=== PATIENT | female | born 1945 | race African-American/Black ===

== ENCOUNTER 2020-04-11 09:37 | Inpatient (IN) | payer MEDICARE, MEDICAID ==
[~2020-04-11] VITALS: Ht 170.2 cm; Wt 69.9 kg
[2020-04-11 10:48] LABS: HEMATOCRIT. 33.7 % (36.0-48.0); HEMOGLOBIN. 11.4 g/dL (12.0-16.0); MEAN CORPUSCULAR HEMOGLOBIN 39.2 pg (28.0-32.0); MEAN CORPUSCULAR VOLUME 115.6 fL (81.0-99.0); MEAN PLATELET VOLUME 9.2 fl (7.4-10.4); PLATELET 100 x1000/uL (130-400); RED BLOOD CELL COUNT 2.92 mill/uL (4.2-5.4); RED CELL DISTRIBUTION WIDTH 19.5 % (11.6-14.6)
[2020-04-11 10:51] LABS: CHLORIDE 105 mEq/L (98-107)
[2020-04-11 10:53] LABS: INR 1.1; PROTHROMBIN TIME 11.4 sec (9.6-11.0)
[2020-04-11 11:25] LABS: PLATELET ESTIMATE DECREASED
[2020-04-11] MEDS ORDERED: VANCOMYCIN 1 G PREMIX 200 ML IV SCH (11:30)
[2020-04-11] MEDS ORDERED: PIPERACILLIN/TAZOBACTAM 3.375GM/50ML PREMIX IV ONE (11:30)
[2020-04-11] MEDS ORDERED: PIPERACILLIN/TAZ 3.375G PREMIX 50 ML IV SCH (12:00)
[2020-04-11] MEDS ORDERED: ZOLPIDEM TARTRATE 5MG TABLET PO PRN (15:15)
[2020-04-11] MEDS ORDERED: ACETAMINOPHEN 325MG TABLET PO PRN ×2 (15:15)
[2020-04-11] MEDS ORDERED: NA PHOS,M-B/NA PHOS,DI-BA ENEMA 118ML PR PRN (15:15)
[2020-04-11] MEDS ORDERED: DOCUSATE SODIUM 100MG CAPSULE PO PRN (15:15)
[2020-04-11] MEDS ORDERED: MAGNESIUM/ALUMINUM HYDROXIDE/SIMETHICONE 30ML UDC PO PRN (15:15)
[2020-04-11] MEDS ORDERED: CLONIDINE 0.1MG TABLET PO PRN (15:15)
[2020-04-11] MEDS ORDERED: ONDANSETRON HCL 4MG/2ML INJ IV PRN (15:15)
[2020-04-11] MEDS ORDERED: MORPHINE SULFATE 2 MG/ML CPJ (NOT FOR IM USE) IV PRN (15:15)
[2020-04-11] MEDS ORDERED: TRAMADOL 50MG TABLET PO PRN (15:15)
[2020-04-11] MEDS ORDERED: GUAIFENESIN 200MG/10ML SUGAR FREE UDC PO PRN (15:15)
[2020-04-11] MEDS ORDERED: NITROGLYCERIN 0.4MG TABLET SL SL PRN (15:15)
[2020-04-11] MEDS ORDERED: IPRATROPIUM/ALBUTEROL 0.5-3(2.5)MG/3ML NEB NEB PRN (15:15)
[2020-04-11] MEDS ORDERED: DEXTROSE 50% WATER 50ML SYRINGE IV PRN (15:30)
[2020-04-11 16:05] VITALS: BP 162/90
[2020-04-11 16:10] VITALS: BP 162/90
[2020-04-11] MEDS: ENOXAPARIN 40MG/0.4ML SYR SUBCUT SCH (16:30)
[2020-04-11 17:13] LABS: FOLIC ACID (FOLATE) SERUM 6.9 ng/mL (>5.38)
[2020-04-11] MEDS ORDERED: *PATIENT'S OWN MEDICATION STORAGE XX SCH (17:15)
[2020-04-11 17:20] VITALS: BP 162/90
[2020-04-11] MEDS: BLOOD SUGAR DIAGNOSTIC STRIP TEST SCH ×2 (17:30→21:03)
[2020-04-11] MEDS: INSULIN LISPRO 100 UNITS/ML SUBCUT SCH ×2 (17:30→21:00)
[2020-04-11] MEDS: PIPERACILLIN/TAZOBACTAM 3.375 G in DEXT 5% WATER 100 ML IV SCH ×2 (18:18→23:57)
[2020-04-11] MEDS ORDERED: HYDR4TAB4 MT (18:35)
[2020-04-11] MEDS: HYDROMORPHONE HCL/PF 2MG/ML CPJ IV PRN (19:32)
[2020-04-11] MEDS ORDERED: APIX5TAB PO (19:53)
[2020-04-11] MEDS ORDERED: BRIM.2 (19:53)
[2020-04-11] MEDS ORDERED: PALB125C PO (19:53)
[2020-04-11] MEDS ORDERED: DIGO125T2 PO (19:53)
[2020-04-11] MEDS ORDERED: BUME2TAB7 PO (19:53)
[2020-04-11] MEDS ORDERED: POTA-79 PO (19:53)
[2020-04-11] MEDS ORDERED: EMPA25TA PO (19:53)
[2020-04-11] MEDS ORDERED: SILD20TA PO (19:53)
[2020-04-11] MEDS ORDERED: METO25TA6 PO (19:53)
[2020-04-11] MEDS ORDERED: NETA2.5D (20:00)
[2020-04-11] MEDS ORDERED: PANT40TA4 PO (20:00)
[2020-04-11] MEDS ORDERED: LETR2.5T7 PO (20:00)
[2020-04-11 20:14] VITALS: BP 98/64
[2020-04-11] MEDS: FAMOTIDINE 20MG TABLET PO SCH (21:00)
[2020-04-11] MEDS: ASCORBIC ACID 500 MG TABLET PO SCH (21:00)
[2020-04-11 23:42] LABS: CREATINE KINASE 38 IU/L (26-192); CREATINE KINASE MB FRACTION < 1.0 ng/mL (0.5-3.6)
[2020-04-12 00:33] VITALS: BP 109/60
[2020-04-12 04:00] VITALS: BP 93/59
[2020-04-12] MEDS: PIPERACILLIN/TAZOBACTAM 3.375 G in DEXT 5% WATER 100 ML IV SCH ×3 (05:07→21:08)
[2020-04-12] MEDS: VANCOMYCIN 1 G PREMIX 200 ML IV SCH (06:33)
[2020-04-12] MEDS: BLOOD SUGAR DIAGNOSTIC STRIP TEST SCH ×4 (06:37→21:00)
[2020-04-12 07:10] LABS: CLARITY URINE CLEAR (CLEAR); COLOR URINE DARK YELLOW (YELLOW); KETONES URINE TRACE (NEGATIVE); LEUKOCYTE ESTERASE URINE 1+ (NEGATIVE); NITRITE URINE NEGATIVE (NEGATIVE); OCCULT BLOOD URINE NEGATIVE (NEGATIVE); PROTEIN URINE TRACE (NEGATIVE); SPECIFIC GRAVITY URINE 1.042 (1.005-1.030)
[2020-04-12 07:14] LABS: CREATINE KINASE 37 IU/L (26-192); CREATINE KINASE MB FRACTION < 1.0 ng/mL (0.5-3.6)
[2020-04-12] MEDS: INSULIN LISPRO 100 UNITS/ML SUBCUT SCH ×4 (07:50→21:00)
[2020-04-12 07:56] LABS: *AMPHETAMINES SCREEN URINE NEGATIVE (NEGATIVE); *BARBITURATES SCREEN URINE NEGATIVE (NEGATIVE); *BENZODIAZEPINES SCREEN URINE NEGATIVE (NEGATIVE); *COCAINE SCREEN URINE NEGATIVE (NEGATIVE); CANNABINOID URINE SCREEN NEGATIVE (NEGATIVE); METHADONE URINE SCREEN NEGATIVE (NEGATIVE); PHENCYCLIDINE URINE SCREEN NEGATIVE (NEGATIVE)
[2020-04-12 07:57] LABS: OPIATES URINE SCREEN PRESUMTIVE POSITIVE (NEGATIVE)
[2020-04-12 08:00] VITALS: BP 136/71
[2020-04-12] MEDS: HYDROMORPHONE HCL/PF 2MG/ML CPJ IV PRN ×3 (08:20→22:51)
[2020-04-12] MEDS: ZINC SULFATE 220 MG ( 50 ) CAPSULE PO SCH (09:00)
[2020-04-12] MEDS: ASCORBIC ACID 500 MG TABLET PO SCH (09:00)
[2020-04-12] MEDS: FAMOTIDINE 20MG TABLET PO SCH (09:00)
[2020-04-12 12:00] VITALS: BP 134/70
[2020-04-12] MEDS ORDERED: BIMA2.5D5 EACHEYE (13:21)
[2020-04-12] MEDS ORDERED: CHOL500063 MT (13:27)
[2020-04-12] MEDS ORDERED: DIGOXIN 125MCG TABLET PO SCH (13:30)
[2020-04-12] MEDS ORDERED: NON FORMULARY PATIENT HOME MED XX SCH (14:30)
[2020-04-12 16:00] VITALS: BP 140/78
[2020-04-12] MEDS: ENOXAPARIN 40MG/0.4ML SYR SUBCUT SCH (16:30)
[2020-04-12] MEDS ORDERED: IBRANCE 125 MG PO SCH (18:00)
[2020-04-12] MEDS: BRIMONIDINE 0.2% OPHTH DROPS 5ML BOTHEYE SCH (18:00)
[2020-04-12] MEDS: DIGOXIN 125MCG TABLET PO SCH (18:29)
[2020-04-12 20:00] VITALS: BP 115/75
[2020-04-12] MEDS: SILDENAFIL CITRATE 20MG TABLET PO SCH (22:43)
[2020-04-12] MEDS: LUMIGAN 0.01% OP SCH (22:59)
[2020-04-12] MEDS: RHOPRESSA 0.02% OP SCH (22:59)
[2020-04-13] VITALS: BP 110/50
[2020-04-13] MEDS: VANCOMYCIN 1 G PREMIX 200 ML IV SCH (00:33)
[2020-04-13] MEDS: PIPERACILLIN/TAZOBACTAM 3.375 G in DEXT 5% WATER 100 ML IV SCH ×4 (03:25→19:53)
[2020-04-13 04:00] VITALS: BP 115/56
[2020-04-13] MEDS: HYDROMORPHONE HCL/PF 2MG/ML CPJ IV PRN ×3 (06:05→21:19)
[2020-04-13] MEDS: BLOOD SUGAR DIAGNOSTIC STRIP TEST SCH ×4 (06:23→21:10)
[2020-04-13] MEDS: PANTOPRAZOLE 40MG DR TABLET PO SCH (06:23)
[2020-04-13] MEDS: INSULIN LISPRO 100 UNITS/ML SUBCUT SCH ×4 (06:23→21:00)
[2020-04-13] MEDS: SILDENAFIL CITRATE 20MG TABLET PO SCH ×3 (06:23→21:18)
[2020-04-13 08:00] VITALS: BP 109/70
[2020-04-13] MEDS: ZINC SULFATE 220 MG ( 50 ) CAPSULE PO SCH (09:00)
[2020-04-13] MEDS: BRIMONIDINE 0.2% OPHTH DROPS 5ML BOTHEYE SCH ×2 (09:47→16:45)
[2020-04-13] MEDS: CHOLECALCIFEROL (D3) 1000 UNIT TABLET PO SCH (09:47)
[2020-04-13 12:00] VITALS: BP 117/69
[2020-04-13 16:00] VITALS: BP 123/73
[2020-04-13] MEDS: ENOXAPARIN 40MG/0.4ML SYR SUBCUT SCH (16:45)
[2020-04-13] MEDS: RHOPRESSA 0.02% OP SCH (16:45)
[2020-04-13] MEDS: LUMIGAN 0.01% OP SCH (16:45)
[2020-04-13] MEDS: DIGOXIN 125MCG TABLET PO SCH (17:23)
[2020-04-13] MEDS: VANCOMYCIN 750 MG PREMIX 150 ML IV SCH (17:24)
[2020-04-13 20:00] VITALS: BP 100/59
[2020-04-14] VITALS: BP 111/59
[2020-04-14] MEDS: PIPERACILLIN/TAZOBACTAM 3.375 G in DEXT 5% WATER 100 ML IV SCH ×4 (03:29→20:35)
[2020-04-14 04:00] VITALS: BP 101/65
[2020-04-14] MEDS: HYDROMORPHONE HCL/PF 2MG/ML CPJ IV PRN ×2 (04:54→13:32)
[2020-04-14] MEDS: SILDENAFIL CITRATE 20MG TABLET PO SCH ×3 (05:56→22:00)
[2020-04-14] MEDS: PANTOPRAZOLE 40MG DR TABLET PO SCH (06:27)
[2020-04-14] MEDS: INSULIN LISPRO 100 UNITS/ML SUBCUT SCH ×4 (06:48→20:11)
[2020-04-14] MEDS: BLOOD SUGAR DIAGNOSTIC STRIP TEST SCH ×4 (06:48→20:11)
[2020-04-14 08:23] VITALS: BP 121/81
[2020-04-14] MEDS: CHOLECALCIFEROL (D3) 1000 UNIT TABLET PO SCH (08:39)
[2020-04-14] MEDS: ZINC SULFATE 220 MG ( 50 ) CAPSULE PO SCH (08:40)
[2020-04-14] MEDS: BRIMONIDINE 0.2% OPHTH DROPS 5ML BOTHEYE SCH ×2 (08:43→17:27)
[2020-04-14 11:40] VITALS: BP 109/76
[2020-04-14] MEDS: VANCOMYCIN 750 MG PREMIX 150 ML IV SCH (13:04)
[2020-04-14 16:06] VITALS: BP 123/64
[2020-04-14] MEDS: ENOXAPARIN 40MG/0.4ML SYR SUBCUT SCH (17:24)
[2020-04-14] MEDS: LUMIGAN 0.01% OP SCH (17:33)
[2020-04-14] MEDS: RHOPRESSA 0.02% OP SCH (17:37)
[2020-04-14] MEDS: DIGOXIN 125MCG TABLET PO SCH (17:47)
[2020-04-14 20:38] VITALS: BP 132/66
[2020-04-15] VITALS: BP 115/56
[2020-04-15] MEDS: PIPERACILLIN/TAZOBACTAM 3.375 G in DEXT 5% WATER 100 ML IV SCH ×2 (02:06→08:05)
[2020-04-15 04:00] VITALS: BP 119/73
[2020-04-15 06:18] LABS: CHLORIDE 109 mEq/L (98-107)
[2020-04-15] MEDS: PANTOPRAZOLE 40MG DR TABLET PO SCH (06:31)
[2020-04-15] MEDS: SILDENAFIL CITRATE 20MG TABLET PO SCH (06:31)
[2020-04-15] MEDS: VANCOMYCIN 750 MG PREMIX 150 ML IV SCH (06:31)
[2020-04-15] MEDS: BLOOD SUGAR DIAGNOSTIC STRIP TEST SCH (06:31)
[2020-04-15] MEDS: INSULIN LISPRO 100 UNITS/ML SUBCUT SCH (06:47)
[2020-04-15] MEDS: BRIMONIDINE 0.2% OPHTH DROPS 5ML BOTHEYE SCH (08:06)
[2020-04-15] MEDS: ZINC SULFATE 220 MG ( 50 ) CAPSULE PO SCH ×2 (08:07→08:17)
[2020-04-15] MEDS: CHOLECALCIFEROL (D3) 1000 UNIT TABLET PO SCH (08:07)
[2020-04-15 08:21] VITALS: BP 131/80
[2020-04-15 09:26] VITALS: BP 132/80
== END 2020-04-15 11:10 | disposition home or self-care (01) | DRG 871 ==
LOC: ER 09:37 → 6WST 13:45 → EDBEDREQTM 13:47 → EDBEDREQ 13:47 → ENRESERV 15:00 → SUPCPDRO 15:14
PROVIDERS: ADMIT Internal Medicine; ATTEND Internal Medicine
DX: A41.9 Sepsis, unspecified organism (principal); G92 Toxic encephalopathy; D61.818 Other pancytopenia; E44.1 Mild protein-calorie malnutrition; C79.51 Secondary malignant neoplasm of bone; L03.311 Cellulitis of abdominal wall; E83.52 Hypercalcemia; J44.9 Chronic obstructive pulmonary disease, unspecified; I48.91 Unspecified atrial fibrillation; C50.919 Malignant neoplasm of unspecified site of unspecified female breast; I10 Essential (primary) hypertension; K57.90 Diverticulosis of intestine, part unspecified, without perforation or abscess without bleeding; E11.9 Type 2 diabetes mellitus without complications; Z79.4 Long term (current) use of insulin; D63.8 Anemia in other chronic diseases classified elsewhere; Z85.3 Personal history of malignant neoplasm of breast; Z68.24 Body mass index [BMI] 24.0-24.9, adult; Z79.899 Other long term (current) drug therapy; Z88.8 Allergy status to other drugs, medicaments and biological substances; Z88.2 Allergy status to sulfonamides; Z88.6 Allergy status to analgesic agent; S31.109A Unspecified open wound of abdominal wall, unspecified quadrant without penetration into peritoneal cavity, initial encounter
CPT/HCPCS: 36415; 74176; 80048; 80053; 80061; 80162; 80202; 80305; 81003; 82550; 82553; 82607; 82746; 82962; 83036; 83540; 83550; 83970; 84484; 85025; 86300; 93005; 93306; 93970; 99285; C1893; J1170; J1650; J2543; J3370; J7040; J7060